=== PATIENT | female | born 1985 | race Two or more races ===

== ENCOUNTER 2020-11-03 16:22 | Emergency (ER) | payer SELFPAY ==
[~2020-11-03] VITALS: Ht 165.1 cm; Wt 89.0 kg
[2020-11-03 17:00] VITALS: BP 148/98
[2020-11-03] MEDS ORDERED: ACETAMINOPHEN 500MG TABLET PO ONE (17:00)
== END 2020-11-03 17:39 | disposition home or self-care (01) ==
LOC: ER 16:22
DX: Z20.822 Contact with and (suspected) exposure to COVID-19 (principal)
CPT/HCPCS: 99283; C9803; U0003; U0005

== ENCOUNTER 2021-09-21 11:21 | Emergency (ER) | payer MEDICAID ==
[~2021-09-21] VITALS: Ht 167.6 cm; Wt 95.0 kg
[2021-09-21 11:24] VITALS: BP 171/66
[2021-09-21 12:17] LABS: BASOPHILS % 0.3 % (0.0-2.0); EOSINOPHILS % 2.5 % (0.0-5.0); HEMATOCRIT. 40.1 % (36.0-48.0); HEMOGLOBIN. 12.7 g/dL (12.0-16.0); MEAN CORPUSCULAR HEMOGLOBIN 23.5 pg (28.0-32.0); MEAN CORPUSCULAR VOLUME 74.3 fL (81.0-99.0); MEAN PLATELET VOLUME 8.2 fl (7.4-10.4); MONOCYTES % 6.8 % (2.0-8.0); NEUTROPHILS % 45.4 % (40.0-76.0); PLATELET 225 x1000/uL (130-400); RED BLOOD CELL COUNT 5.39 mill/uL (4.2-5.4); RED CELL DISTRIBUTION WIDTH 15.2 % (11.6-14.6)
[2021-09-21 12:20] LABS: CHLORIDE 110 mEq/L (98-107)
[2021-09-21 12:49] LABS: HCG SCREEN NEGATIVE
[2021-09-21] MEDS ORDERED: OMEP20TA15 MT (14:51)
== END 2021-09-21 15:20 | disposition home or self-care (01) ==
LOC: ER 11:21
DX: R07.9 Chest pain, unspecified (principal); K29.70 Gastritis, unspecified, without bleeding; K21.9 Gastro-esophageal reflux disease without esophagitis; Z20.822 Contact with and (suspected) exposure to COVID-19
CPT/HCPCS: 36415; 71045; 80053; 84484; 84703; 85025; 87426; 93005; 99285; C9803